=== PATIENT | female | born 1950 | race Caucasian/White ===

== ENCOUNTER 2018-04-16 09:00 | Day surgery (SDC) | payer MEDICARE, OTHER | END 2018-04-16 12:00 | disposition home or self-care (01) | LOC: MOI MAM 09:00 | DX: D24.2 Benign neoplasm of left breast (principal); R92.8 Other abnormal and inconclusive findings on diagnostic imaging of breast | CPT/HCPCS: 19081; 88305 ==

== ENCOUNTER → 2019-01-14 | Outpatient (CLI) | payer MEDICARE, OTHER ==
[2019-01-16 13:07] LABS: HPV 16 Negative (Negative); HPV 18 Negative (Negative); HPV OTHER HR TYPES Negative (Negative)
== END | disposition home or self-care (01) ==
LOC: LAB SHORT 11:00 → LAB 11:00
PROVIDERS: Obstetrics & Gynecology
DX: Z01.419 Encounter for gynecological examination (general) (routine) without abnormal findings (principal)
CPT/HCPCS: 87624; G0123

== ENCOUNTER → 2020-08-22 | Outpatient (CLI) | payer MEDICARE, OTHER ==
[2020-08-22 21:47] LABS: Stool Occult Blood Guaiac 1 Neg (Neg)
== END ==
LOC: LAB EV 09:08 → LAB SHORT 09:08
PROVIDERS: Nurse Practitioner
DX: K62.5 Hemorrhage of anus and rectum (principal)
CPT/HCPCS: 82270

== ENCOUNTER → 2021-02-23 | Outpatient (CLI) | payer MEDICARE, OTHER | END | disposition home or self-care (01) | LOC: LAB SHORT 15:53 | DX: R82.79 Other abnormal findings on microbiological examination of urine (principal) | CPT/HCPCS: 87086 ==

== ENCOUNTER 2021-11-10 08:14 | Day surgery (SDC) | payer MEDICARE, OTHER | END 2021-11-16 23:22 | disposition home or self-care (01) | LOC: MOI US 08:14 | DX: C50.312 Malignant neoplasm of lower-inner quadrant of left female breast (principal) | CPT/HCPCS: 19285; 77065; A4648 ==

== ENCOUNTER 2021-11-14 10:02 | Day surgery (SDC) | payer MEDICARE, OTHER ==
[~2021-11-14] VITALS: Ht 165.1 cm; Wt 74.4 kg
--- NOTE | 2021-11-14 15:50 | NUR ---
Dressing to procedure site clean, dry, intact with no visible drainage, swelling, erythema or bruising noted. Discharge instructions reviewed with patient. Patient verbalizes understanding. Copy given to patient to take home. Discharged via wheelchair to private car for ride home.
== END 2021-11-14 15:51 | disposition home or self-care (01) ==
LOC: NM 10:02 → ORSCMMR 10:02 → NM 10:30
PROVIDERS: Surgery
PROC: 0HBU0ZZ Excision of Left Breast, Open Approach (ICD-10-PCS; principal; 2021-11-14 12:00)
PROC: 07B60ZX Excision of Left Axillary Lymphatic, Open Approach, Diagnostic (ICD-10-PCS; principal; 2021-11-14 12:00)
DX: C50.912 Malignant neoplasm of unspecified site of left female breast (principal); D36.0 Benign neoplasm of lymph nodes; Z17.0 Estrogen receptor positive status [ER+]; E03.9 Hypothyroidism, unspecified; Z87.891 Personal history of nicotine dependence
CPT/HCPCS: 38792; 76098; 88305; 88307; 88342; A9270; A9520; J0690; J1100; J1885; J2405; J2704; J2795; J3010; J7120; Q9968

== ENCOUNTER → 2023-09-09 | Outpatient (CLI) | payer MEDICARE, OTHER ==
[2023-09-09 14:05] LABS: Stool Occult Bld Immuno 1 Negative (NEGATIVE)
== END | disposition home or self-care (01) ==
LOC: LAB SHORT 10:25
PROVIDERS: Family Medicine
DX: Z12.11 Encounter for screening for malignant neoplasm of colon (principal)
CPT/HCPCS: G0328

== ENCOUNTER 2023-12-04 09:25 | Day surgery (SDC) | payer MEDICARE, OTHER ==
[2023-12-04] VITALS (15 sets, daily range): BP systolic 82–163; BP diastolic 55–87
[~2023-12-04] VITALS: Ht 167.6 cm; Wt 77.7 kg
[~2023-12-04 09:25] MED LIST: NS 500 ML IV SCH
[2023-12-04] MEDS ORDERED: propofoL 20 ML IV ONE (11:29)
--- NOTE | 2023-12-04 11:43 | NUR ---
12/04/23 1143 Maynor Rice CONFIRMED AND REVIEWED H&P, MEDCICATIONS, ALLERGIES, MEDICAL HISTORY, RESPIRATORY HISTORY, VITAL SIGNS, 3-LEAD EKG, CONSENTS, AND PHYSICIAN ORDERS. PATIENT CONFIRMS NPO STATUS AND AGREES WITH SCHEDULED PROCEDURE. MONITOR INTACT WITH CONTINUOUS PULSE OXIMETRY, CAPNOGRAPHY, 3-LEAD EKG, INTERMITTENT BP. SUPPLEMENTAL O2 TO BE TITRATED THROUGHOUT PROCEDURE TO MAINTAIN O2 SATURATION ABOVE 90%. PATIENT DETERMINED TO BE ASA APPROPRIATE FOR PROPOFOL SEDATION PRIOR TO START OF PROCEDURE BY DR. JULES
--- NOTE | 2023-12-04 12:45 | NUR ---
Discharge instructions reviewed with patient. Patient verbalizes understanding. Copy given to patient to take home. Discharged via wheelchair to private car for ride home. Patient States Post-Procedure ride home has been arranged.
== END 2023-12-04 12:30 | disposition home or self-care (01) ==
LOC: ORSCMMR 09:25 → ORD 10:30 → ORSCMMR 10:30
PROVIDERS: Internal Medicine Gastroenterology
PROC: 0DJD8ZZ Inspection of Lower Intestinal Tract, Via Natural or Artificial Opening Endoscopic (ICD-10-PCS; principal; 2023-12-04 10:30)
DX: Z12.11 Encounter for screening for malignant neoplasm of colon (principal); K57.30 Diverticulosis of large intestine without perforation or abscess without bleeding; M62.89 Other specified disorders of muscle
CPT/HCPCS: J2704; J7040